=== PATIENT | male | born 1980 | race Caucasian/White ===

== ENCOUNTER 2023-12-11 11:32 | Emergency (ER) | payer OTHER ==
[~2023-12-11] VITALS: Ht 177.8 cm; Wt 82.7 kg
[2023-12-11 11:44] VITALS: BP 134/81; PULSE 87; RESP 16; TEMP 98.1; O2SAT 96
== END 2023-12-11 12:22 | disposition home or self-care (01) ==
LOC: ER 11:33
DX: S80.02XA Contusion of left knee, initial encounter (principal); X58.XXXA Exposure to other specified factors, initial encounter; Y93.89 Activity, other specified; Y92.89 Other specified places as the place of occurrence of the external cause; Y99.8 Other external cause status
CPT/HCPCS: 99284; A6449